=== PATIENT | male | born 1960 | race Caucasian/White ===

== ENCOUNTER 2016-08-11 06:55 | Inpatient (IN) | payer OTHER ==
[2016-08-10 09:29] VITALS: BMI 26.0
[~2016-08-11] VITALS: Ht 177.8 cm; Wt 72.0 kg
[2016-08-11] VITALS (24 sets, daily range): BP systolic 97–136; BP diastolic 50–82; PULSE 52–78; RESP 13–27; Ht 177.8 cm; Wt 72.0 kg
[2016-08-11] MEDS: BUPIVACAINE 0.5% (SDV) 30 ML, morphine SULFATE (PF) 8 MG, EPINEPHrine 0.3 MG, KETOROLAC... IRR SCH ×21 (06:30→12:12)
[~2016-08-11 06:55] MED LIST: CEFAZOLIN 2 GM/50 ML (PMX) 50 ML IVPB ONE; DEXAMETHASONE 1 MG TAB PO ONE; GABAPENTIN 300 MG CAP PO ONE; SOD CHLORIDE 0.9% 100 ML, TRANEXAMIC ACID 3,000 MG IRR ONE; TRANEXAMIC ACID 1,000 MG in SOD CHLORIDE 0.9% 100 ML IVPB ONE; oxyCODONE (CR) 10 MG TAB [oxyCONTIN] PO ONE; traMADol 50 MG TAB PO ONE
[2016-08-11] MEDS ORDERED: OMEP40CA6 PO (08:22)
[2016-08-11] MEDS ORDERED: HYDR-902 PO (08:22)
[2016-08-11] MEDS ORDERED: LIDO700A6 TP (08:22)
[2016-08-11] MEDS ORDERED: LORA1TAB PO (08:22)
[2016-08-11] MEDS ORDERED: LYR75 PO (08:22)
[2016-08-11] MEDS ORDERED: CA CHLORIDE 10% 10 ML SYRINGE ONE (08:34)
[2016-08-11] MEDS ORDERED: POLYMYXIN/BACITRACIN 1L IRRIG ONE (08:34)
[2016-08-11] MEDS ORDERED: THROMBIN 5000 UNIT VIAL ONE (08:34)
--- NOTE | 2016-08-11 08:55 | HPN ---
Date/Time of Note Date/Time of Note DATE: 08/11/16 TIME: 08:55 Interval H&P Admission Note Pt. seen H&P reviewed: No system changes DAKOTA JOHNS MD Aug 11, 2016 08:55
[2016-08-11] MEDS ORDERED: PROPOFOL 20 ML ONE (09:29)
[2016-08-11] MEDS ORDERED: morphine SULFATE/PF (10 MG/10 ML) INJ ONE (09:29)
[2016-08-11] MEDS ORDERED: LIDOCAINE 2% (SDV) 5 ML INJ ONE (09:29)
[2016-08-11] MEDS ORDERED: CEFAZOLIN 1 GM INJ ONE (09:51)
[2016-08-11] MEDS ORDERED: DIPHENHYDRAMINE 50 MG INJ IV PRN ×2 (10:30→12:00)
[2016-08-11] MEDS ORDERED: NALOXONE (0.4 MG/ML) INJ IV PRN (10:30)
[2016-08-11] MEDS ORDERED: morphine SULFATE/PF (10 MG/10 ML) INJ SPINAL ONE (10:30)
[2016-08-11] MEDS ORDERED: HYDROmorphONE 1 MG/ML SYG IV PRN ×2 (10:30)
[2016-08-11] MEDS ORDERED: EPHEDrine SULFATE 50 MG/5 ML SYG IV PRN (10:30)
[2016-08-11] MEDS ORDERED: morphine 2 MG INJ IV PRN ×3 (10:30→12:00)
[2016-08-11] MEDS ORDERED: ONDANSETRON 4 MG INJ ONE (10:41)
--- NOTE | 2016-08-11 11:43 | PDOCDIS ---
Discharge Instructions DIAGNOSIS Discharge Diagnosis: Hip arthritis CONDITION Patient Condition: Good HOME CARE INSTRUCTIONS: Diet Instructions: Regular ACTIVITY: Activity Restrictions: Slowly Increase Activity Keep Limb Elevated Bathing Restrictions: Shower FOLLOW UP/APPOINTMENTS Appointments Two weeks SCHOOL/WORK RELEASE May return to School/Work with: With Restrictions School/Work Release Comment: No hip extension for six weeks DAKOTA JOHNS MD Aug 11, 2016 11:43
[2016-08-11] MEDS ORDERED: BETHANECHOL 25 MG TAB PO PRN (12:00)
[2016-08-11] MEDS ORDERED: OXYCODONE/ACETAMINOPHEN (5/325) TAB PO PRN (12:00)
[2016-08-11] MEDS ORDERED: KETOROLAC 15 MG INJ IV PRN (12:00)
[2016-08-11] MEDS ORDERED: ONDANSETRON 4 MG INJ IV PRN (12:00)
[2016-08-11] MEDS ORDERED: ACETAMINOPHEN 500 MG TAB PO PRN (12:00)
[2016-08-11] MEDS ORDERED: ZOLPIDEM 5 MG TAB PO PRN (12:00)
[2016-08-11] MEDS ORDERED: morphine 4 MG/ML VIAL IV PRN (12:00)
[2016-08-11] MEDS ORDERED: TRANEXAMIC ACID 1,000 MG in SOD CHLORIDE 0.9% 100 ML IV ONE (12:00)
[2016-08-11] MEDS ORDERED: MAGNESIUM HYDROXIDE 30ML CUP PO PRN (12:00)
--- NOTE | 2016-08-11 12:09 | OPR ---
DATE OF OPERATION: 08/11/2016 ATTENDING PHYSICIAN: Dakota Regan MD LNA: Chavez Landa MD PREOPERATIVE DIAGNOSIS: Right hip primary osteoarthritis. POSTOPERATIVE DIAGNOSIS: Right hip primary osteoarthritis. OPERATION PERFORMED: Right total hip arthroplasty. Field Producer surgeon, Chavez Landa MD, was asked to be present at my request as a result of the complexity associated with this procedure, including positioning of the extremity, manipulation and protection of the neurovascular structures. In my opinion, the assistance offered by a industrial safety and health technician is insufficient and Dr. Landa should be compensated for his time. PROCEDURE IN DETAIL: Following administration of general endotracheal anesthesia, the patient was placed in the supine position. A Albright catheter was placed under sterile guidance and a spinal anesthetic was administered by Dr. Sandoval. Sterile prep and drape of the bilateral lower extremities was then undertaken. The right hip was then incised laterally along the tensor. The tensor was retracted laterally. The fascia was elevated and the anterior capsule exposed. Capsulotomy was then performed, as well as an extensive capsulectomy. Very severe osteophytes were removed from around the area and the femoral neck exposed. A femoral neck cut was then made in the appropriate degree of version and inclination. The femoral head was then removed. Severe arthritic changes were noted on the acetabulum. Very large peripheral osteophytes were removed and the acetabulum was reamed up to the 53-mm size. Using fluoroscopic guidance with the computer CT-guided system the cup was then implanted. This was a 54-mm [place] cup with a 30-mm screw. The position was noted to be 45 degrees of abduction and 22 degrees of anteversion. A standard liner was then impacted. The femoral canal was then exposed and a 12-mm Corail stem was then implanted with a standard neck. The radiographs revealed essentially equal limb lengths according to the computer guidance. The wound was then thoroughly irrigated. The fascia was closed using a running stitch. Watertight closure was obtained. Tranexamic acid was placed in the depth of the wound. Peripheral injection was then undertaken as well. The wound was then closed in layers. A Prineo dressing was then applied, with a watertight closure. The patient was then awakened and transported to the recovery room in stable condition. Estimated blood loss for this procedure was approximately 250 mL. Postoperative radiographs as well as a CBC will be obtained in the recovery room. Dictated By: DAKOTA SOLIMAN/MATA Conf#: [id number] [facility]#: [id number] MTDD
[2016-08-11 12:13] LABS: ADD SCAN DIFF NO
[2016-08-11] MEDS: CEFAZOLIN 1 GM/50 ML (PMX) 50 ML IVPB SCH ×2 (12:14→20:07)
[2016-08-11 12:21] LABS: BASOPHILS % 0.5 % (0.0-2.0); HEMATOCRIT 39.4 % (42.0-52.0); HEMOGLOBIN 13.3 g/dl (14.0-18.0); LYMPHOCYTES # 1.6 10^3/ul (0.8-2.9); LYMPHOCYTES % 24.2 % (15.0-51.0); MEAN CORPUSCULAR HEMOGLOBIN 31.4 pg (29.0-33.0); MEAN CORPUSCULAR HGB CONC 33.8 g/dl (32.0-37.0); MEAN CORPUSCULAR VOLUME 92.9 fl (82.0-101.0); MEAN PLATELET VOLUME 9.4 fl (7.4-10.4); MONOCYTE # 0.2 10^3/ul (0.3-0.9); MONOCYTES % 2.4 % (0.0-11.0); NEUTROPHIL # 4.7 10^3/ul (1.6-7.5); NEUTROPHILS % 71.8 % (39.0-77.0); PLATELET COUNT 202 10^3/UL (140-415); RED BLOOD COUNT 4.24 10^6/ul (4.70-6.10); WHITE BLOOD COUNT 6.6 10^3/ul (4.8-10.8)
--- NOTE | 2016-08-11 12:45 | RADRPT ---
PROCEDURE: XR Pelvis. CLINICAL INDICATION: Hip pain TECHNIQUE: Single AP view performed. COMPARISON: No prior studies are available for comparison. FINDINGS: There is a postoperative right total hip replacement. There is no evidence of loosening of the prost hesis. There is moderate left hip osteoarthrosis. This is associated with joint space narrowing, subchondra l sclerosis and osteophytosis. There is normal osseous mineralization. No fractures or osseous les ions are identified. There are postoperative soft tissue changes IMPRESSION: Postoperative right total hip replacement Postoperative soft tissue changes Moderate left hip osteoarthrosis. RPTAT: HGDB .Rcahid Jordan MD, Date Time Electronically viewed and signed by .Rachid Jordan MD, on 08/11/2016 12:45 .B/
--- NOTE | 2016-08-11 13:59 | RADRPT ---
PROCEDURE: X-ray fluoroscopy guidance CLINICAL INDICATION: Right hip hemiarthroplasty procedure. TECHNIQUE: Fluoroscopic guidance was utilized for an intraoperative procedure. Fluoroscopic guidan ce was utilized for and intraoperative procedure. 8.4 minutes of fluoroscopy time was utilized for the procedure. 5 x-ray images were obtained. COMPARISON: None available FINDINGS: Right acetabular component and right femoral stem component are identified in place, in good locatio n. Alignment is anatomic. Remaining osseous structures are intact. No bony fracture seen. No oth er acute abnormality is identified. IMPRESSION: 1. X-ray fluoroscopic guidance utilized for intraoperative procedure. 2. Right hip prosthesis in appropriate anatomic alignment. RPTAT: HMJB .Dank Rangel MD, Date Time Electronically viewed and signed by .Dank Rangel MD, MD on 08/11/2016 13:59 .B/
[2016-08-11] MEDS: DEXAMETHASONE 2 MG TAB PO SCH ×2 (14:39→16:54)
[2016-08-11] MEDS: CARBOXYMETHYLCELLULOSE 0.5% 0.1 ML OPH RIGHT EYE SCH ×3 (15:00→20:34)
[2016-08-11] MEDS: LACTATED RINGER'S 1,000 ML IV SCH ×2 (16:15→21:39)
--- NOTE | 2016-08-11 17:41 | CONS ---
Date/Time of Note Date/Time of Note DATE: 08/11/16 TIME: 17:16 Assessment/Plan Assessment/Plan Problems: (1) History of total right hip arthroplasty Status: Acute Comment: clinically stable post op. (2) GERD (gastroesophageal reflux disease) Status: Chronic Comment: will order PPI omeprazole (3) Hip arthritis Status: Resolved Comment: post op right total hip replacement clinically doing well. 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 Eyes: other (C/O blurry vision, pain and dry scratchy feeling in right eye after surgery) ENT: no complaints Respiratory: no complaints Cardiovascular: no complaints Gastrointestinal: no complaints Genitourinary: no complaints Musculoskeletal: back pain Skin: no complaints Neurologic: no complaints Endocrine: no complaints Lymphatic: no complaints Psychological: no complaints Immunologic: no complaints Past Medical History Medical History: GERD, other (anxiety and osteoarthritis) Past Surgical History Past Surgical Hx: other (right hand growth hernia repair rhizotomy low back) Family History Significant Family History: other () Social History Alcohol Use: occasionally Smoking Status: Light tobacco smoker (5 cigarettes a day at most off and on) Drug Use: none ( ) Other Social History with 5 children Exam/Review of Systems Vital Signs Vitals Vital Signs Date Time Temp Pulse Resp B/P Pulse Ox O2 Delivery O2 Flow Rate FiO2 08/11/16 16:00 62 20 116/65 94 Room Air 08/11/16 13:44 98.4 Exam Constitutional: alert, oriented, well developed Psych: no complaints Head: atraumatic, normocephalic Eyes: EOMI, PERRL, fundi, disc (undilated and not well visualized), nl conjunctiva Neck: supple Respiratory: clear to auscultation Cardiovascular: nl pulses, regular rate and rhythm Gastrointestinal: soft Musculoskeletal: nl extremities to inspection Extremities: normal pulses, other (right hip incision c/d) Neurological: GENERAL INTERNAL MEDICINE DOCTOR II-XII intact, nl mental status, nl speech, other (moves all extremeties) Skin: nl turgor Results Labs and vitals reviewed Result Diagram: 08/11/16 1204 Results 24 hrs Laboratory Tests Test 08/11/16 12:04 Basophils # 0.0 Basophils % 0.5 Eosinophils # 0.0 Eosinophils % 0.0 Hematocrit 39.4 L Hemoglobin 13.3 L Lymphocytes # 1.6 Lymphocytes % 24.2 Mean Corpuscular Hemoglobin 31.4 Mean Corpuscular Hemoglobin Concent 33.8 Mean Corpuscular Volume 92.9 Mean Platelet Volume 9.4 Monocytes # 0.2 L Monocytes % 2.4 Neutrophils # 4.7 Neutrophils % 71.8 Nucleated Red Blood Cells # 0.0 Nucleated Red Blood Cells % 0.0 Platelet Count 202 Red Blood Count 4.24 L Red Cell Distribution Width 12.0 White Blood Count 6.6 Medications Medications Current Medications Lorazepam (Ativan) 1 mg HS PO ; Start 08/11/16 at 21:00 Pantoprazole 40 mg 40 mg DAILY@06 PO ; Start 08/12/16 at 06:00 Cefazolin Sodium (Ancef 1 Gm/50 ml (Pmx)) 50 ml @ 100 mls/hr Q8H IVPB Last administered on 08/11/16 12:14; Admin Dose 100 MLS/HR; Start 08/11/16 at 12:00 ; Stop 08/12/16 at 04:29 Senna/Docusate Sodium (Senokot-S) 1 tab BID PO ; Start 08/11/16 at 21:00 Simethicone (Mylicon) 80 mg TID PRN PO DISTENSION/GAS/BLOATING; Start 08/11/16 at 12:00 Magnesium Hydroxide (Milk Of Mag) 30 ml BID PRN PO CONSTIPATION; Start at 12:00 Acetaminophen (Tylenol Tab) 1,000 mg Q4H PRN PO TEMP GREATER THAN 100.4F; Start 08/11/16 at 12:00 Dexamethasone (Decadron) 2 mg Q6 PO Last administered on 08/11/16 16:54; Admin Dose 2 MG; Start 08/11/16 at 12:00; Stop 08/12/16 at 06:01 Gabapentin (Neurontin) 300 mg HS PO ; Start 08/11/16 at 21:00 Oxycodone/ Acetaminophen (Percocet (5/ 325)) 1 tab Q4H PRN PO PAIN LEVEL 1-5; Start 08/11/16 at 12:00 Oxycodone/ Acetaminophen (Percocet (5/ 325)) 2 tab Q4H PRN PO PAIN LEVEL 6-10; Start 08/11/16 at 12:00 Morphine Sulfate (morphine) 2 mg Q2H PRN IV PAIN LEVEL 1-5; Start 08/11/16 at 12:00 Morphine Sulfate (morphine) 4 mg Q4H PRN IV PAIN LEVEL 6-10; Start 08/11/16 at 12:00 Ketorolac Tromethamine (Toradol) 15 mg Q6H PRN IV PAIN; Start 08/11/16 at 12:00 ; Stop 08/14/16 at 11:59 Ondansetron HCl (Zofran Inj) 4 mg Q6H PRN IV NAUSEA AND/OR VOMITING; Start at 12:00 Diphenhydramine HCl (Benadryl) 25 mg Q6H PRN IV PRURITUS; Start 08/11/16 at 12: 00 Aspirin 81 mg 81 mg DAILY PO ; Start 08/12/16 at 09:00 Lactated Ringer's (Lr) 1,000 ml @ 100 mls/hr Q10H IV Last administered on 08/11 16:15; Admin Dose 100 MLS/HR; Start 08/11/16 at 11:39 Eye Lubricant (Refresh Plus) 1 drop QID RIGHT EYE Last administered on 16:57; Admin Dose 1 DROP; Start 08/11/16 at 15:00 Influenza Virus Vaccine (Fluzone) 0.5 ml ONCE ONCE IM* ; Start 08/13/16 at 09:00 ; Stop 08/13/16 at 09:01 JOVAN POLO MD Aug 11, 2016 17:26
[2016-08-11] MEDS: OXYCODONE/ACETAMINOPHEN (5/325) TAB PO PRN (20:08)
[2016-08-11] MEDS: SENNA/DOCUSATE NA (8.6MG/50MG) TAB PO SCH (20:33)
[2016-08-11] MEDS ORDERED: LORAZEPAM 1 MG TAB PO SCH (21:00)
[2016-08-11] MEDS ORDERED: GABAPENTIN 300 MG CAP PO SCH (21:00)
[2016-08-12] MEDS: DEXAMETHASONE 2 MG TAB PO SCH ×2 (00:34→06:40)
[2016-08-12 00:35] VITALS: BP 102/56; RESP 20
[2016-08-12] MEDS: LACTATED RINGER'S 1,000 ML IV SCH ×2 (03:20→07:39)
[2016-08-12] MEDS: CEFAZOLIN 1 GM/50 ML (PMX) 50 ML IVPB SCH (03:20)
[2016-08-12 05:42] LABS: ADD SCAN DIFF NO
[2016-08-12 05:48] VITALS: BP 112/75; PULSE 66; RESP 18
[2016-08-12 05:56] LABS: BASOPHILS % 0.2 % (0.0-2.0); HEMOGLOBIN 11.9 g/dl (14.0-18.0); LYMPHOCYTES # 0.8 10^3/ul (0.8-2.9); LYMPHOCYTES % 9.5 % (15.0-51.0); MEAN CORPUSCULAR HEMOGLOBIN 31.5 pg (29.0-33.0); MEAN CORPUSCULAR VOLUME 92.6 fl (82.0-101.0); MEAN PLATELET VOLUME 9.8 fl (7.4-10.4); MONOCYTE # 0.5 10^3/ul (0.3-0.9); MONOCYTES % 5.4 % (0.0-11.0); NEUTROPHIL # 7.5 10^3/ul (1.6-7.5); NEUTROPHILS % 84.4 % (39.0-77.0); PLATELET COUNT 192 10^3/UL (140-415); RED BLOOD COUNT 3.78 10^6/ul (4.70-6.10); RED CELL DISTRIBUTION WIDTH 11.8 % (11.5-14.5); WHITE BLOOD COUNT 8.9 10^3/ul (4.8-10.8)
[2016-08-12] MEDS ORDERED: PANTOPRAZOLE (EC) 40 MG TAB PO SCH (06:00)
[2016-08-12] MEDS: OXYCODONE/ACETAMINOPHEN (5/325) TAB PO PRN (06:40)
--- NOTE | 2016-08-12 06:46 | PN ---
Date/Time of Note Date/Time of Note DATE: 08/12/16 TIME: 06:45 24 hour Interval Summary Patient is doing very well he is awake and alert and took only one pain pill. Physical examination: His wound is clean and dry. He is neurologically intact. There are no signs of DVT. There is no swelling. Impression: Status post total hip replacement Plan: He will begin ambulation this morning and be discharged once physical therapy clears him. He will follow-up in the office in 2 weeks. Physical Exam Vital Signs Date Time Temp Pulse Resp B/P Pulse Ox O2 Delivery O2 Flow Rate FiO2 08/12/16 05:48 98.5 66 18 112/75 98 Room Air Intake and Output 08/11/16 08/11/16 08/12/16 15:00 23:00 07:00 Intake Total 1960 ml 1080 ml 2050 ml Output Total 170 ml 500 ml 1900 ml Balance 1790 ml 580 ml 150 ml VTE Prophylaxis VTE Prophylaxis Intervention: anti-embolic stocking Lines/Catheters IV Catheter Type: Saline Lock Albright in Place: No Results Result Diagram: 08/11/16 1204 Results 24hrs Laboratory Tests Test 08/11/16 12:04 Basophils # 0.0 Basophils % 0.5 Eosinophils # 0.0 Eosinophils % 0.0 Hematocrit 39.4 L Hemoglobin 13.3 L Lymphocytes # 1.6 Lymphocytes % 24.2 Mean Corpuscular Hemoglobin 31.4 Mean Corpuscular Hemoglobin Concent 33.8 Mean Corpuscular Volume 92.9 Mean Platelet Volume 9.4 Monocytes # 0.2 L Monocytes % 2.4 Neutrophils # 4.7 Neutrophils % 71.8 Nucleated Red Blood Cells # 0.0 Nucleated Red Blood Cells % 0.0 Platelet Count 202 Red Blood Count 4.24 L Red Cell Distribution Width 12.0 White Blood Count 6.6 Assessment/Plan Chief Complaint/Hosp Course 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 Problems: Medications Medications Home Meds Reported Medications Omeprazole* (Omeprazole*) 40 Mg Capsule.dr, 40 MG PO DAILY, #30 CAP 08/11/16 Lorazepam* (Lorazepam*) 1 Mg Tablet, 1 MG PO HS, #30 TAB 08/11/16 Lidocaine (Lidoderm) 1 Each Adh..patch, 1 EACH TP 2/23/17 Hydrocodone/Acetaminophen ([place] 10-325 Tablet) 1 Each Tablet, 1 EACH PO, TAB 08/11/16 Pregabalin* (Lyrica*) 75 Mg Capsule, 75 MG PO BID, CAP 08/11/16 DAKOTA JOHNS MD Aug 12, 2016 06:46
--- NOTE | 2016-08-12 06:47 | DS ---
Date/Time of Note Date/Time of Note DATE: 08/12/16 TIME: 06:46 Discharge Summary Admission/Discharge Info Admit Date/Time Aug 11, 2016 at 06:55 Discharge Date/Time August 12, 2016 following clearance by physical therapy. Final Diagnosis Hip primary osteoarthritis Patient Condition: Good Procedures Right total hip replacement Hx of Present Illness Patient had severe pain and stiffness for several years. 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 S/P Right total hip replacement. He underwent a total hip replacement with no complications. He underwent physical therapy the next morning and was discharged following clearance by physical therapy. Home Meds Reported Medications Omeprazole* (Omeprazole*) 40 Mg Capsule.dr, 40 MG PO DAILY, #30 CAP 08/11/16 Lorazepam* (Lorazepam*) 1 Mg Tablet, 1 MG PO HS, #30 TAB 08/11/16 Lidocaine (Lidoderm) 1 Each Adh..patch, 1 EACH TP 08/11/16 Hydrocodone/Acetaminophen ([place] 10-325 Tablet) 1 Each Tablet, 1 EACH PO, TAB 08/11/16 Pregabalin* (Lyrica*) 75 Mg Capsule, 75 MG PO BID, CAP 08/11/16 Follow-up Plan 2 weeks Pending Labs Laboratory Tests Test 08/11/16 12:04 Basophils # 0.010^3/ul (0.0-0.1) Basophils % 0.5% (0.0-2.0) Eosinophils # 0.010^3/ul (0.0-0.5) Eosinophils % 0.0% (0.0-7.0) Hematocrit 39.4% (42.0-52.0) Hemoglobin 13.3g/dl (14.0-18.0) Lymphocytes # 1.610^3/ul (0.8-2.9) Lymphocytes % 24.2% (15.0-51.0) Mean Corpuscular Hemoglobin 31.4pg (29.0-33.0) Mean Corpuscular Hemoglobin Concent 33.8g/dl (32.0-37.0) Mean Corpuscular Volume 92.9fl (82.0-101.0) Mean Platelet Volume 9.4fl (7.4-10.4) Monocytes # 0.210^3/ul (0.3-0.9) Monocytes % 2.4% (0.0-11.0) Neutrophils # 4.710^3/ul (1.6-7.5) Neutrophils % 71.8% (39.0-77.0) Nucleated Red Blood Cells # 0.010^3/ul (0.0-0.0) Nucleated Red Blood Cells % 0.0/100WBC (0.0-0.0) Platelet Count 83249^3/UL (140-415) Red Blood Count 4.2410^6/ul (4.70-6.10) Red Cell Distribution Width 12.0% (11.5-14.5) White Blood Count 6.610^3/ul (4.8-10.8) DAKOTA JOHNS MD Aug 12, 2016 06:47
[2016-08-12 08:05] VITALS: BP 103/61; RESP 18
[2016-08-12] MEDS: CARBOXYMETHYLCELLULOSE 0.5% 0.1 ML OPH RIGHT EYE SCH (08:36)
[2016-08-12] MEDS: SENNA/DOCUSATE NA (8.6MG/50MG) TAB PO SCH (08:36)
[2016-08-12] MEDS ORDERED: ASPIRIN 81 MG TAB PO SCH (09:00)
--- NOTE | 2016-08-12 09:03 | CONS ---
DATE OF ADMISSION: 08/11/2016 DATE OF CONSULTATION: 08/12/2016 TYPE OF CONSULTATION: Ophthalmology. REFERRING PHYSICIAN: Dr. Yogi Bernal HISTORY OF PRESENT ILLNESS: Thank you for asking me to see this 56-year-old gentleman who underwent hip replacement surgery yesterday and during the postoperative recovery period began to feel irrita tion in his right eye. The patient was treated with preservative-free Artificial Tears last night a nd this morning appears to be asymptomatic. The patient denies any visual blurring or loss of field of vision in either eye. The patient does not currently experience any ocular discomfort. The pat ient denies any prior history of eye disease or injury. PHYSICAL EXAMINATION: The visual acuity without correction is 20/40 in the right eye and 20/20 in t he left eye. External ocular examination reveals normal eyelid closure. There is no conjunctival h yperemia and no evidence of epiphora. Examination of the cornea in both eyes appears clear, with flu orescein dye placed there is no evidence of any corneal abrasion. The pupil of each eye is 3 mm, ro und and reactive to light. Confrontation visual field testing is within normal limits. DIAGNOSTIC IMPRESSION: Dry eye syndrome secondary to probable exposure conjunctivitis during a surg ical procedure. PLAN: The patient does not need any ophthalmic intervention. He has been advised to use Artificial Tears as needed for symptomatic relief and should have total resolution of his ocular complaints fro m this point forward. Dictated By: SOFIA PACE/NTS Conf#: [id number] DID#: [id number] CC: YOGI BERNAL MD;*EndCC*
--- NOTE | 2016-08-12 10:12 | PN ---
Date/Time of Note Date/Time of Note DATE: 08/12/16 TIME: 10:06 Assessment/Plan VTE Prophylaxis VTE Prophylaxis Intervention: SCD's Lines/Catheters IV Catheter Type (from Nrsg): Saline Lock Urinary Cath still in place: No Subjective 24 Hr Interval Summary Free Text/Dictation 56 yr old man post rt hip surgery, firrst day post op no significant pain, he says his leg is moving better vs good, afebrile, hgb ok surgical site is clean without drainage lungs clear, abd is soft, no edema, pumps on legs plan is to get up today with pt, and discharge later if ok had some eye flashes yesterday, ok today, no abnormalities per dr damon Exam/Review of Systems Vital Signs Vitals Vital Signs Date Time Temp Pulse Resp B/P Pulse Ox O2 Delivery O2 Flow Rate FiO2 08/12/16 08:05 98.2 75 18 103/61 94 08/12/16 05:48 Room Air Intake and Output 08/11/16 08/11/16 08/12/16 15:00 23:00 07:00 Intake Total 1960 ml 1080 ml 2050 ml Output Total 170 ml 500 ml 1900 ml Balance 1790 ml 580 ml 150 ml Results Result Diagram: 08/12/16 0430 Results 24 hrs Laboratory Tests Test 08/11/16 12:04 08/12/16 04:30 Basophils # 0.0 0.0 Basophils % 0.5 0.2 Eosinophils # 0.0 0.0 Eosinophils % 0.0 0.0 Hematocrit 39.4 L 35.0 L Hemoglobin 13.3 L 11.9 L Lymphocytes # 1.6 0.8 Lymphocytes % 24.2 9.5 L Mean Corpuscular Hemoglobin 31.4 31.5 Mean Corpuscular Hemoglobin Concent 33.8 34.0 Mean Corpuscular Volume 92.9 92.6 Mean Platelet Volume 9.4 9.8 Monocytes # 0.2 L 0.5 Monocytes % 2.4 5.4 Neutrophils # 4.7 7.5 Neutrophils % 71.8 84.4 H Nucleated Red Blood Cells # 0.0 0.0 Nucleated Red Blood Cells % 0.0 0.0 Platelet Count 202 192 Red Blood Count 4.24 L 3.78 L Red Cell Distribution Width 12.0 11.8 White Blood Count 6.6 8.9 # Medications Medications Current Medications Lorazepam (Ativan) 1 mg HS PO Last administered on 08/11/16 20:33; Admin Dose 1 MG; Start 08/11/16 at 21:00 Pantoprazole (Protonix Tab) 40 mg DAILY@06 PO Last administered on 08/12/16 06 :40; Admin Dose 40 MG; Start 08/12/16 at 06:00 Senna/Docusate Sodium (Senokot-S) 1 tab BID PO Last administered on 08/12/16 08:36; Admin Dose 1 TAB; Start 08/11/16 at 21:00 Simethicone (Mylicon) 80 mg TID PRN PO DISTENSION/GAS/BLOATING; Start 08/11/16 at 12:00 Magnesium Hydroxide (Milk Of Mag) 30 ml BID PRN PO CONSTIPATION; Start at 12:00 Acetaminophen (Tylenol Tab) 1,000 mg Q4H PRN PO TEMP GREATER THAN 100.4F; Start 08/11/16 at 12:00 Gabapentin (Neurontin) 300 mg HS PO Last administered on 08/11/16 20:32; Admin Dose 300 MG; Start 08/11/16 at 21:00 Oxycodone/ Acetaminophen (Percocet (5/ 325)) 1 tab Q4H PRN PO PAIN LEVEL 1-5 Last administered on 08/12/16 06:40; Admin Dose 1 TAB; Start 08/11/16 at 12:00 Oxycodone/ Acetaminophen (Percocet (5/ 325)) 2 tab Q4H PRN PO PAIN LEVEL 6-10; Start 08/11/16 at 12:00 Morphine Sulfate (morphine) 2 mg Q2H PRN IV PAIN LEVEL 1-5; Start 08/11/16 at 12:00 Morphine Sulfate (morphine) 4 mg Q4H PRN IV PAIN LEVEL 6-10; Start 08/11/16 at 12:00 Ketorolac Tromethamine (Toradol) 15 mg Q6H PRN IV PAIN; Start 08/11/16 at 12:00 ; Stop 08/14/16 at 11:59 Ondansetron HCl (Zofran Inj) 4 mg Q6H PRN IV NAUSEA AND/OR VOMITING; Start at 12:00 Diphenhydramine HCl (Benadryl) 25 mg Q6H PRN IV PRURITUS; Start 08/11/16 at 12: 00 Aspirin 81 mg 81 mg DAILY PO Last administered on 08/12/16 08:36; Admin Dose 81 MG; Start 08/12/16 at 09:00 Lactated Ringer's (Lr) 1,000 ml @ 100 mls/hr Q10H IV Last administered on 08/12 03:20; Admin Dose 100 MLS/HR; Start 08/11/16 at 11:39 Eye Lubricant (Refresh Plus) 1 drop QID RIGHT EYE Last administered on 08:36; Admin Dose 1 DROP; Start 08/11/16 at 15:00 Influenza Virus Vaccine (Fluzone) 0.5 ml ONCE ONCE IM* ; Start 08/13/16 at 09:00 ; Stop 08/13/16 at 09:01 YOANDY RODRIGUEZ MD Aug 12, 2016 10:12
[2016-08-13] MEDS ORDERED: INFLUENZA VIRUS VACCINE 0.5 ML (DISPENSING) IM* ONE (09:00)
== END 2016-08-12 11:29 | disposition home or self-care (01) | DRG 470 ==
LOC: REC 06:55 → MS1 11:15 → REC 11:25 → MS1 13:25
PROVIDERS: ADMIT Orthopaedic Surgery; ATTEND Orthopaedic Surgery
PROC: 0SR904A Replacement of Right Hip Joint with Ceramic on Polyethylene Synthetic Substitute, Uncemented, Open Approach (ICD-10-PCS; principal; 2016-08-11 09:00)
DX: M16.11 Unilateral primary osteoarthritis, right hip (principal); H04.121 Dry eye syndrome of right lacrimal gland; K21.9 Gastro-esophageal reflux disease without esophagitis; Z72.0 Tobacco use
CPT/HCPCS: 72170; 73530; 85025; 86999; 97163; Z7610; C1713; C1776; J0171; J0690; J0735; J1885; J2274; J2405; J3370; J7120